=== PATIENT | male | born 1980 | race Caucasian/White ===

== ENCOUNTER 2017-08-20 14:37 | Emergency (ER) | payer BC ==
[~2017-08-20] VITALS: Ht 182.9 cm; Wt 84.0 kg
[~2017-08-20 14:37] MED LIST: MOTRIN800 MG PO
[2017-08-20] MEDS ORDERED: ERYTHROMYC1 APPLICAT RIGHT EYE (15:28)
[2017-08-20 15:51] VITALS: BP 138/91
== END 2017-08-20 15:53 | disposition home or self-care (01) ==
LOC: EME 14:37
DX: S05.02XA Injury of conjunctiva and corneal abrasion without foreign body, left eye, initial encounter (principal); W22.8XXA Striking against or struck by other objects, initial encounter; Y93.H2 Activity, gardening and landscaping; Y99.0 Civilian activity done for income or pay
CPT/HCPCS: 99281; 99285